=== PATIENT | female | born 1935 | race Caucasian/White ===

== ENCOUNTER → 2018-10-08 | Outpatient (CLI) | payer MEDICARE, BC ==
[~2018-10-08] MED LIST: CEPH500 PO; CLIM.025TP; DIPASPER PO; HYDCHL25; MECL25 PO; PROC25S PR; PROP10; ROSU10TA; TRIAM/HCTZ; TRIHYD253B; [UNRECOGNIZED DRUG - REMARK]
[2018-10-09 14:37] LABS: C DIFFICILE BY DNA AMP Positive (Negative)
== END | disposition home or self-care (01) ==
LOC: LAB SHORT 15:04 → LAB 15:04 → LAB FUT 10-09 12:15
PROVIDERS: Internal Medicine
DX: R10.9 Unspecified abdominal pain (principal); R19.7 Diarrhea, unspecified
CPT/HCPCS: 87324; 87493

== ENCOUNTER 2018-11-09 13:27 | Day surgery (SDC) | payer MEDICARE, BC ==
[~2018-11-09] VITALS: Ht 152.4 cm; Wt 52.5 kg
[~2018-11-09 13:27] MED LIST changes: +CLIMARA TOP; +Dyazide 37.5-21 EACH PO; +PROP10 PO; +VITAMIN D3 COM1 EACH PO
--- NOTE | 2018-11-09 14:36 | NUR ---
11/09/18 1435 Ruthy Myers 1 IV IN RH BY LV VALVE 1 GOOD IV IN RAC BY LV PT TOW
--- NOTE | 2018-11-09 15:52 | NUR ---
11/09/18 1552 Pili Dean V PT DID GET NAUSEOUS DURING TRANSFER FROM ENDO ROOM TO RECOVERY ROOM AND PROCEEDED TO VOMIT APPROX. 30ML OF BILE. AFTER THAT, PT STATED SHE DID NOT FEEL NAUSEOUS AND HAD NOT PAIN OR DISCOMFORT. PT'S LUNGS SOUNDED CLEAR ON ASCULTATION AND PT TOLERATED PO NURISHMENT W/O PROBLEMS.
== END 2018-11-09 15:53 | disposition home or self-care (01) ==
LOC: ORSCSDS 13:27
PROVIDERS: Surgery
PROC: 0DBE8ZX Excision of Large Intestine, Via Natural or Artificial Opening Endoscopic, Diagnostic (ICD-10-PCS; principal; 2018-11-09 14:45)
DX: Z12.11 Encounter for screening for malignant neoplasm of colon (principal); Z80.0 Family history of malignant neoplasm of digestive organs; I10 Essential (primary) hypertension; K21.9 Gastro-esophageal reflux disease without esophagitis; E78.5 Hyperlipidemia, unspecified; Z87.891 Personal history of nicotine dependence; Z79.899 Other long term (current) drug therapy
CPT/HCPCS: 88305; J2704; J7120

== ENCOUNTER → 2020-10-17 | Outpatient (CLI) | payer MEDICARE, BC | END | disposition home or self-care (01) | LOC: LAB SHORT 11:26 | DX: L82.1 Other seborrheic keratosis (principal) | CPT/HCPCS: 88305 ==

== ENCOUNTER 2022-03-31 10:47 | Day surgery (SDC) | payer MEDICARE, BC ==
[~2022-03-31] VITALS: Ht 152.4 cm; Wt 52.7 kg
[~2022-03-31 10:47] MED LIST changes: +ATOR10 PO; +CLIMARA1 EACH TOP; +DYAZIDE 37.5-21 EACH PO; -Dyazide 37.5-21 EACH PO; +LISI5 PO; +VITAMIN D31000 UNIT PO
--- NOTE | 2022-03-31 11:55 | NUR ---
Ambulatory in Day Surgery. History, Chart, Medications and Allergies reviewed before start of procedure. Pre-Op teaching done. Pt verbalizes understanding.
--- NOTE | 2022-03-31 18:41 | NUR ---
SHIFT SUMMARY PATIENT NEW ADMIT TO UNIT FROM PACU L TKA POD [address] VILLELA. ALERT AND ORIENTED IN ROOM. TOLERATING REGULAR DIET AND LIQUIDS. IV FLUIDS RUNNING. SPINAL STILL IN EFFECT. PATIENT HAS NOT BEEN UP OUT OF BED OR VOIDED AT THIS TIME. ABLE TO WIGGLE BILAT ANKLES AND TOES. DENIES ANY PAIN AT THIS TIME. LEFT KNEE WITH 2 AQUACELS C/D/I.
--- NOTE | 2022-04-01 04:22 | NUR ---
SHIFT SUMMARY PATIENT AOX4, POD 2 L TKA. SPINAL WITH REPORTED NUMBNESS IN L FOOT. ABLE TO AMBULATE TO BATHROOM WITH 1 ASSIST GB, AND FWW, ABLE TO WIGGLE TOES AND FINGERS. MEDICATED FOR PAIN WITH 5MG OXY. DENIES N/V. TOLERATING PO INTAKE. PATIENT DID NOT SLEEP MUCH THIS SHIFT, REPORTS HAVING CAFFEINE THIS EVENING AND NOT ABLE TO SLEEP. TO WORK WITH THERAPY IN AM, VSS, CALL LIGHT IN REACH.
[2022-04-01 05:43] LABS: BASOPHILS ABSOLUTE AUTO 0.02 K/mm3 (0.00-0.23); BASOPHILS PERCENT AUTO 0 % (0-2); EOSINOPHILS ABSOLUTE AUTO 0.01 K/mm3 (0.00-0.68); EOSINOPHILS PERCENT AUTO 0 % (0-6); Hematocrit 31.1 % (33.0-51.0); Hemoglobin 10.6 g/dL (11.5-16.0); IMMATURE GRAN ABSOLUTE AUTO 0.07 K/mm3 (0.00-0.10); IMMATURE GRAN PERCENT AUTO 1 % (0-1); LYMPHOCYTES ABSOLUTE AUTO 0.83 K/mm3 (0.84-5.20); LYMPHOCYTES PERCENT AUTO 7 % (21-46); MONOCYTES ABSOLUTE AUTO 0.71 K/mm3 (0.16-1.47); MONOCYTES PERCENT AUTO 6 % (4-13); Mean Corpuscular HGB 31.5 pg (26.0-34.0); Mean Corpuscular HGB Conc 34.1 g/dL (31.5-36.5); Mean Corpuscular Volume 92 fL (80-100); NEUTROPHILS ABSOLUTE AUTO 10.25 K/mm3 (1.96-9.15); NEUTROPHILS PERCENT AUTO 86 % (41-73); Platelet Count 159 K/mm3 (150-400); RDW Coefficient Variation 12.4 % (11.7-14.2); RDW Standard Deviation 42.1 fL (35.1-46.3); Red Blood Cell Count 3.37 M/mm3 (3.80-5.20); White Blood Cell Count 11.89 K/mm3 (4.00-11.30)
[2022-04-01 06:11] LABS: Bun/Creatinine Ratio 18.9 (12.0-20.0); Calcium, Blood 8.5 mg/dL (8.5-10.1); Creatinine, Blood 1.48 mg/dL (0.40-1.00); Magnesium, Blood 1.6 mg/dL (1.6-2.4); Potassium, Blood 4.7 mmol/L (3.5-5.5)
[2022-04-01] MEDS ORDERED: ACET500 PO (09:08)
[2022-04-01] MEDS ORDERED: OXYC5 PO (09:09)
[2022-04-01] MEDS ORDERED: ASPI81CH PO (09:09)
--- NOTE | 2022-04-01 10:15 | NUR ---
DISCHARGE PT HAS CLEARED THERAPY. PAIN WELL CONTROLLED. EATING, DRINKING, & VOIDING WELL. C/O AN ACIDIC STOMACH BUT SAYS THAT IS NOT ABNORMAL FOR HER. STANLEY, SCRIPT, & POLAR PACK SENT w/ PT. ESCORTED OUT VIA W/C.
--- NOTE | 2022-04-01 14:04 | NUR ---
04/01/22 1404 Hawa German VERIFICATIONS: EDIT CHART.
== END 2022-04-01 10:15 | disposition home or self-care (01) ==
LOC: ORSCMMR 10:47 → ORD 13:30 → ORSCMMR 14:30 → ORD 14:30 → SURS 17:23 → ORSCMMR 04-01 10:15
PROVIDERS: Orthopaedic Surgery
DX: M17.12 Unilateral primary osteoarthritis, left knee (principal); M25.562 Pain in left knee; E78.5 Hyperlipidemia, unspecified; I12.9 Hypertensive chronic kidney disease with stage 1 through stage 4 chronic kidney disease, or unspecified chronic kidney disease; N18.9 Chronic kidney disease, unspecified; Z87.891 Personal history of nicotine dependence; Z79.899 Other long term (current) drug therapy
CPT/HCPCS: 36415; 73560-LT; 80048; 83735; 85025; 97110; 97116; 97162; 97530; A9270; C1776; J0171; J0690; J0735; J1100; J1885; J2250; J2405; J2704; J2795; J3010; J7120